=== PATIENT | male | born 1975 | race Caucasian/White ===

== ENCOUNTER 2023-01-10 08:33 | Day surgery (SDC) | payer BC ==
[~2023-01-10 08:33] MED LIST: Midazolam 1 MG/ML 2 ML SDV ONE; Propofol 200 MG/20 ML SDV ONE
[2023-01-10] MEDS: Lactated Ringers 1,000 ML IV SCH (09:08)
[2023-01-10] MEDS ORDERED: Sodium Chloride 0.9% 10 ML Syringe FLUSH PRN (09:45)
== END 2023-01-10 11:35 | disposition home or self-care (01) ==
LOC: LL.SDS 08:33
PROVIDERS: ATTEND Surgery
DX: Z12.11 Encounter for screening for malignant neoplasm of colon (principal); K21.9 Gastro-esophageal reflux disease without esophagitis; L80 Vitiligo; Z79.899 Other long term (current) drug therapy
CPT/HCPCS: 00812; 82947; J2250; J2704; J7120